=== PATIENT | male | born 1955 | race Caucasian/White ===

== ENCOUNTER 2022-09-11 18:06 | Emergency (ER) | payer MEDICARE, OTHER ==
--- NOTE | 2022-09-11 18:08 | ERPHSYRPT ---
- History of Present Illness Time Seen by Provider: 09/11/22 18:08 Source: patient Exam Limitations: no limitations Physician History: This is a 67-year-old white male patient who lost his balance in his garage and hit the right side of his face on the door frame. Patient presents with a 4 cm vertically oriented laceration. Patient did not lose consciousness. Patient takes a baby aspirin today but no other anticoagulation therapy. Patient's tetanus status is up-to-date. Patient has no known drug allergies. Timing/Duration: today Quality: painful Severity: mild Location: face (Right of the right eyebrow vertically oriented 4 cm laceration) Associated Symptoms: denies symptoms Allergies/Adverse Reactions: No Known Drug Allergies Allergy (Verified 09/11/22 18:11) Home Medications: Cholecalciferol (Vitamin D3) [Vitamin D3] 1 tab PO DIRECTIONS UNKNOWN 09/11/22 [History] Hx Tetanus, Diphtheria Vaccination/Date Given: No Hx Influenza Vaccination/Date Given: No Hx Pneumococcal Vaccination/Date Given: No Travel Risk - International Travel Have you traveled outside of the country in past 3 weeks: No - Coronavirus Screening Are you exhibiting any of the following symptoms?: No Close contact with a COVID-19 positive Pt in past 14-21 Days: No - Review of Systems Constitutional: No Symptoms Eyes: No Symptoms Ears, Nose, & Throat: No Symptoms Respiratory: No Symptoms Cardiac: No Symptoms Abdominal/Gastrointestinal: No Symptoms Genitourinary Symptoms: No Symptoms Musculoskeletal: No Symptoms Skin: Other (Vertically oriented right of right eyebrow laceration measuring 4 cm) Neurological: No Symptoms Psychological: No Symptoms Endocrine: No Symptoms Hematologic/Lymphatic: No Symptoms Immunological/Allergic: No Symptoms All Other Systems: Reviewed and Negative - Past Medical History Pertinent Past Medical History: No - Past Surgical History Past Surgical History: Yes Gastrointestinal: Appendectomy, Cholecystectomy Musculoskeletal: Orthopedic Surgery - Social History Smoking Status: Never smoker Exposure to second hand smoke: No Drug Use: marijuana Patient Lives Alone: No - Nursing Vital Signs Nursing Vital Signs: Initial Vital Signs Temperature 97.8 F 09/11/22 18:13 Pulse Rate 80 09/11/22 18:13 Respiratory Rate 19 09/11/22 18:13 Blood Pressure 132/76 09/11/22 18:13 O2 Sat by Pulse Oximetry 97 09/11/22 18:13 Pain Scale Pain Intensity 2 - Physical Exam General Appearance: no apparent distress, alert Eye Exam: PERRL/EOMI, eyes nml inspection Ears, Nose, Throat Exam: normal ENT inspection, moist mucous membranes Neck Exam: normal inspection, non-tender, supple, full range of motion Respiratory Exam: airway intact, No chest tenderness, No respiratory distress Gastrointestinal/Abdomen Exam: No tenderness Rectal Exam: not done Back Exam: normal inspection, normal range of motion, No CVA tenderness, No vertebral tenderness Extremity Exam: normal inspection, normal range of motion, pelvis stable Neurologic Exam: alert, oriented x 3, cooperative, 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 No active bleeding. No foreign body present. No eyelid or eye globe involvement) Lymphatic Exam: No adenopathy SpO2 Interpretation: normal O2 Delivery: Room Air Procedures - Laceration/Wound Repair Right Face Time of Procedure: 18:45 Wound Location: Right, face (Right of right eyebrow. Vertically oriented) Wound Length (cm): 4 Wound's Depth, Shape: superficial, linear Wound Explored: clean (Wound explored to the base in a bloodless field and no foreign body noted) Irrigated: Yes Hibiclens Prep: Yes Anesthesia: 1% Lidocaine Volume Anesthetic (ccs): 3 Wound Repaired With: sutures Suture Size/Type: 4-0, ethilon Number of Sutures: 5 Layer Closure?: No - Course Nursing assessment & vital signs reviewed: Yes Ordered Tests: Medication Summary Discontinued Medications Generic Name Dose Route Start Last Admin Trade Name Jeanne PRN Reason Stop Dose Admin Bacitracin Zinc 0.9 each 09/11/22 19:07 Bacitracin Packet 1 Each Pckt TP 09/11/22 19:08 STAT ONE Lidocaine HCl 10 ml 09/11/22 18:23 09/11/22 18:41 Lidocaine Hcl 1% 20 Ml Mdv 20 Ml Ml IJ 09/11/22 18:24 10 ml STAT ONE Administration Lidocaine HCl Confirm 09/11/22 18:25 Lidocaine Hcl 1% 20 Ml Mdv 20 Ml Ml Administered 09/11/22 18:26 Dose 10 ml .ROUTE .K-MED ONE - Progress Progress: improved Progress Note: 09/11/22 19:12 This patient's medical issue is 1 of low complexity. The level of complexity and the work-up performed is based on review of the patient's past medical history, review of the patient's medication list, review the patient's drug allergy list, history of present illness and physical findings on examination. Patient is not in need of laboratory or radiographic studies. Counseled pt/family regarding: diagnosis, need for follow-up Medical Desision Making - Independent Historian Additional History obtained from: Relative/friend - Risk of complications Minimal Risk: Minimal risk of morbidity - Departure Departure Disposition: Home Clinical Impression: Facial laceration Condition: Stable Critical Care Time: No Additional Instructions: Keep laceration repair site dry for 24 hours. After 24 hours, 7 PM on 09/12/2022, you may wash the site daily with soap and water. Blot dry use a mathematics academic chair to dry the site. Placed a thin layer of antibiotic ointment to the suture repair line. Suture removal in 5 to 7 days. Ice pack to the area 3 times a day for 48 hours. May use Tylenol and ibuprofen for pain control.
[2022-09-11 18:22] VITALS: O2SAT 97
[2022-09-11] MEDS ORDERED: XYLOCAINE 1% HCL 20 ML MDV IJ ONE (18:23)
[2022-09-11] MEDS ORDERED: XYLOCAINE 1% HCL 20 ML MDV ONE (18:25)
[2022-09-11] MEDS ORDERED: BACIGUENT PACKET TP ONE (19:07)
[2022-09-11] MEDS ORDERED: BACIGUENT PACKET ONE (19:08)
[2022-09-11 19:32] VITALS: BP 115/75; PULSE 68
== END 2022-09-11 19:25 | disposition home or self-care (01) ==
LOC: ED 18:06
DX: S01.81XA Laceration without foreign body of other part of head, initial encounter (principal); W22.09XA Striking against other stationary object, initial encounter; Y92.015 Private garage of single-family (private) house as the place of occurrence of the external cause
CPT/HCPCS: 12013; 96372; 99283; A9270-GY